=== PATIENT | female | born 1950 | race Caucasian/White ===

== ENCOUNTER → 2017-04-01 | Outpatient (CLI) | payer OTHER | LOC: RAD 04:01 | DX: Z12.31 Encounter for screening mammogram for malignant neoplasm of breast (principal) ==

== ENCOUNTER → 2018-04-04 | Outpatient (CLI) | payer OTHER, MEDICARE | LOC: RAD 04:03 | DX: Z12.31 Encounter for screening mammogram for malignant neoplasm of breast (principal) ==

== ENCOUNTER → 2019-04-05 | Outpatient (CLI) | payer OTHER, MEDICARE | LOC: RAD 02:50 | DX: Z12.31 Encounter for screening mammogram for malignant neoplasm of breast (principal) ==

== ENCOUNTER → 2020-04-07 | Outpatient (CLI) | payer OTHER, MEDICARE | LOC: RAD 13:19 | PROVIDERS: ATTEND Internal Medicine | DX: Z12.31 Encounter for screening mammogram for malignant neoplasm of breast (principal) ==

== ENCOUNTER → 2020-04-22 | Outpatient (CLI) | payer OTHER, MEDICARE ==
[~2020-04-22] MED LIST: CALCIUM + D3 E1 EACH PO; FAMOTIDINE 40 M40 M1 PO; MULTIVITAMINS PO; PERCOCET 7.5-31 EAC1 PO; VITAMIN D350 MC3 PO
== END ==
LOC: LAB 10:57
PROVIDERS: ATTEND Orthopaedic Surgery Foot and Ankle Surgery
DX: Z01.812 Encounter for preprocedural laboratory examination (principal); Z20.828 Contact with and (suspected) exposure to other viral communicable diseases

== ENCOUNTER → 2020-04-25 | Day surgery (SDC) | payer OTHER, MEDICARE ==
[~2020-04-25] VITALS: Ht 162.6 cm; Wt 70.3 kg
--- NOTE | ~2020-04-25 | O ---
[facility] [place] [address] OPERATIVE REPORT Name: UMANG BIRD Room #: [facility].#: [id number] Admission: 04/25/20 Attend Phys: Aquiles Ross MD Discharge: Date of : 52 Report #: [id number] THIS REPORT FOR: cc: Kaleigh Looney MD,Aquiles Cosme MD, MD ~ CC: Aquiles Looney DATE OF SERVICE: 04/25/2020 PREOPERATIVE DIAGNOSIS: Left hallux valgus. POSTOPERATIVE DIAGNOSIS: Left hallux valgus. PROCEDURE: 1. Left foot Lapidus type procedure. 2. Left modified Ramos procedure. SURGEON: Dr. Aquiles Ross. MAIL ORDER BILLER: Delia Castellanos. ANESTHESIA: General. ESTIMATED BLOOD LOSS: Minimal. DRAINS: No drains. TOURNIQUET TIME: 1 hour. DESCRIPTION OF PROCEDURE: The patient brought to the operating room where she was placed under general anesthesia. Once under adequate general anesthesia, her left lower extremity was prepped and draped in sterile manner. The extremity was elevated, exsanguinated, tourniquet placed 300 mmHg. A dorsal incision at the first TMT joint was made. This was dissected down through the soft tissue to the dorsum of the foot where the first TMT joint was then released utilizing a 15 blade, a sagittal saw and an osteotome. This was then able to be rotated sufficiently. A secondary incision over the second metatarsal was then made and the C-clamp was then placed with the metatarsal placed in rotation and the C clamp in place. Subsequent placement of the bone cutting block was then performed. Once in place, the bone was then cut at the base of the first metatarsal and at the distal portion of the medial cuneiform, the closing wedge to complete the osteotomy. The fragments were then removed from the joint and subsequently the joint was fenestrated and compressed with fixation across the joint, and then achieved with 2 plates from the [address] [address] OPERATIVE REPORT Name: UMANG BIRD Room #: REG [facility] [place] M..#: [id number] Admission: 04/25/20 Attend Phys: Aquiles Ross MD Discharge: Date of : 52 Report #: [id number] janice. Excellent fixation across the joint was achieved in this manner with excellent alignment. A separate 3.0 cannulated screw had been placed as well for fixation and compression across the joint prior to fixation with plates. Distally, a 2 cm incision in the webspace was made and dissection carried down to the lateral sesamoid, which was released from the adductor tendon. This was done with a pair of tenotomy scissors. A [place] blade was then used to release the proximal phalanx from the lateral sesamoid and the joint capsule was released as well, fenestrated multiple times, thus allowing reduction of the joint. The procedure of the Ramos portion was performed prior to fixation of the TMT joint. A dorsal tenotomy through the same incision at the second MTP joint was then performed as well to release a dorsiflexion contracture. The Toes were then well aligned. The wounds were irrigated copiously and closed with 2-0 Vicryl in subcutaneous tissues and aisha were used for the skin. Wounds were dressed with Xeroform, 4 x 4s, and sterile soft compressive dressing was placed. Tourniquet was let down approximately 1 hour. Toes were pink and warm with good capillary refill. There were no complications from the procedure. The patient tolerated the procedure well and went to recovery room without incident. By: [id number] 10 Aquiles Ross MD /anika
[2020-04-25 13:45] VITALS: BP 151/85
--- NOTE | 2020-04-25 15:10 | EKG ---
[facility] [place] [address] ELECTROCARDIOGRAM REPORT Name: UMANG BIRD Room #: [facility] [place]#: [id number] Admission: 04/25/20 Attend Phys: Aquiles Ross MD Discharge: Date of : 52 Report #: [id number] THIS REPORT FOR: cc: Kaleigh Looney MD, Sharon R. 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
[2020-04-25 16:56] VITALS: BP 151/85
== END | disposition home or self-care (01) ==
LOC: OR 11:28
PROVIDERS: ATTEND Orthopaedic Surgery Foot and Ankle Surgery
DX: M20.12 Hallux valgus (acquired), left foot (principal); M79.672 Pain in left foot; K21.9 Gastro-esophageal reflux disease without esophagitis; M85.80 Other specified disorders of bone density and structure, unspecified site; Z98.890 Other specified postprocedural states; Z79.899 Other long term (current) drug therapy; Z98.41 Cataract extraction status, right eye; Z85.3 Personal history of malignant neoplasm of breast; Z98.42 Cataract extraction status, left eye
CPT/HCPCS: 50010; 50101; 50386; 56524; 56526; 56527; 57091; 57180; 57910; 57946; 62110; 62900; 70005

== ENCOUNTER → 2021-04-08 | Outpatient (CLI) | payer OTHER, MEDICARE | LOC: BC 09:10 | PROVIDERS: ATTEND Family Medicine | DX: Z12.31 Encounter for screening mammogram for malignant neoplasm of breast (principal) ==